=== PATIENT | female | born 1955 | race Caucasian/White ===

== ENCOUNTER → 2021-09-27 11:14 | Outpatient (CLI) | payer MEDICARE, OTHER, SELFPAY ==
[2021-09-27 19:33] LABS: Rubella Antibody IgG > 350.0 IU/mL (>15)
[2021-09-28 11:42] LABS: Mumps Virus IgG Antibody 55.2 AU/mL (Immune >10.9); Rubeola Measles IgG > 300.0 AU/mL (Immune >16.4); Varicella IgG Antibody 679 index (Immune >165)
[2021-10-01 07:50] LABS: QuantiFERON Mitogen Value >10.00 IU/mL (.); QuantiFERON Nil Value 0.02 IU/mL (.); QuantiFERON TB Gold Plus Negative (Negative); QuantiFERON TB1 Ag Value 0.03 IU/mL (.); QuantiFERON TB2 Ag Value 0.02 IU/mL (.)
== END ==
DX: Z02.1 Encounter for pre-employment examination (principal); Z11.1 Encounter for screening for respiratory tuberculosis
CPT/HCPCS: 36415; 86480; 86735; 86762; 86765; 86787